=== PATIENT | male | born 1955 | race Caucasian/White ===

== ENCOUNTER 2022-09-02 12:40 | Emergency (ER) | payer MEDICARE, OTHER ==
[~2022-09-02] VITALS: Ht 165.1 cm; Wt 59.0 kg
[2022-09-02] MEDS ORDERED: THIAMINE 100mg/ml INJ (200mg/2ml VIAL) IV ONE (14:15)
[2022-09-02] MEDS ORDERED: SODIUM CHLORIDE 0.9% 1,000 ML IV ONE (14:15)
[2022-09-02 14:56] LABS: Basophils # (auto) 0 10 ^3/uL (0-0.2); Basophils % (auto) 0.2 % (0.0-2.0); Eosinophils # (auto) 0 10 ^3/uL (0-0.8); Hematocrit 38.6 % (41.0-53.0); Lymphocytes # (auto) 1.8 10 ^3/uL (0.4-5.4); Lymphocytes % (auto) 11.9 % (10.0-50.0); Mean Corpuscular Hemoglobin 30.1 pg (28.0-32.0); Mean Corpuscular Hgb Conc. 33.8 g/dL (32.0-36.0); Mean Corpuscular Volume 89.3 fL (80.0-100.0); Monocytes # (auto) 1.3 10 ^3/uL (0-1.3); Monocytes % (auto) 8.9 % (0.0-12.0); Neutrophils # (auto) 11.8 10 ^3/uL (1.6-8.6); Nucleated Red Blood Cells % 0.1 %; Red Blood Cells 4.32 10^6/uL (4.5-5.90); Red Cell Distribution Width 13.4 % (11.8-14.3)
[2022-09-02 15:13] LABS: Alanine Aminotransferase 105 U/L (16-61); Albumin 2.5 g/dL (3.4-5.0); Anion Gap 6 (5-15); Aspartate Aminotransferase 120 U/L (15-37); BUN/Creatinine Ratio 26.8; Blood Alcohol < 3.0 mg/dL (0-5); Blood Urea Nitrogen 22 mg/dL (7-18); Carbon Dioxide 25 mmol/L (21-32); Chloride 97 mmol/L (98-107); GFR African American 121 mL/min; GFR Non-African American 100 mL/min; Glucose 240 mg/dL (74-106); Potassium 4.1 mmol/L (3.5-5.1); Sodium 128 mmol/L (136-145)
[2022-09-02 15:17] LABS: Alkaline Phosphatase 168 U/L (45-117); Total Protein 6.7 g/dL (6.4-8.2)
[2022-09-02] MEDS: FOLIC ACID 1 MG, MULTIPLE VITAMIN 10 ML, MAGNESIUM SULF SDV 50% 8 MEQ, THIAMINE INJ 100... INJ SCH ×10 (16:40→22:58)
[2022-09-02 23:00] VITALS: BP 143/73
== END 2022-09-02 20:02 | disposition home or self-care (01) ==
LOC: EDBD 12:40 → EDUNIT# 12:40 → ER 12:40
DX: F10.129 Alcohol abuse with intoxication, unspecified (principal); F41.9 Anxiety disorder, unspecified; F32.9 Major depressive disorder, single episode, unspecified; Z88.8 Allergy status to other drugs, medicaments and biological substances; Z59.00 Homelessness unspecified
CPT/HCPCS: 36415; 74176; 80053; 80320; 83880; 85025; 96361; 96365; 96366; 96375; 99285; J3411; J3475; J7030

== ENCOUNTER 2022-09-03 13:44 | Emergency (ER) | payer OTHER ==
[~2022-09-03] VITALS: Ht 165.1 cm; Wt 68.1 kg
[2022-09-03 14:15] VITALS: BP 184/102
[2022-09-03] MEDS ORDERED: LACTATED RINGER'S 1,000 ML IV ONE (14:15)
== END 2022-09-03 15:33 | disposition left against medical advice (07) ==
LOC: ER 13:44 → EDBD 13:44 → ER 15:33
DX: R53.1 Weakness (principal); Z53.21 Procedure and treatment not carried out due to patient leaving prior to being seen by health care provider

== ENCOUNTER 2022-09-05 18:35 | Inpatient (IN) | payer OTHER ==
[~2022-09-05] VITALS: Ht 177.8 cm; Wt 64.1 kg
[2022-09-05] MEDS ORDERED: SODIUM CHLORIDE 0.9% 1,000 ML IV ONE (18:45)
[2022-09-05] MEDS ORDERED: CLINDAMYCIN 600MG IV 50 ML IV ONE (19:45)
[2022-09-05] MEDS ORDERED: cefTRIAXone 1GM/50ML D5W 50 ML IV ONE (19:45)
[2022-09-05 20:48] LABS: Basophils # (auto) 0.1 10 ^3/uL (0-0.2); Basophils % (auto) 0.8 % (0.0-2.0); Eosinophils # (auto) 0 10 ^3/uL (0-0.8); Hematocrit 40.2 % (41.0-53.0); Hemoglobin 13.8 g/dL (13.5-17.5); Lymphocytes # (auto) 1.3 10 ^3/uL (0.4-5.4); Lymphocytes % (auto) 9.9 % (10.0-50.0); Mean Corpuscular Hemoglobin 30.7 pg (28.0-32.0); Mean Corpuscular Hgb Conc. 34.4 g/dL (32.0-36.0); Mean Corpuscular Volume 89.1 fL (80.0-100.0); Monocytes # (auto) 1.5 10 ^3/uL (0-1.3); Monocytes % (auto) 11.7 % (0.0-12.0); Neutrophils # (auto) 9.9 10 ^3/uL (1.6-8.6); Neutrophils % (auto) 77.6 % (37.0-80.0); Nucleated Red Blood Cells % 0.1 %; Red Blood Cells 4.51 10^6/uL (4.5-5.90); Red Cell Distribution Width 13.6 % (11.8-14.3); White Blood Cell 12.8 10^3/uL (4.4-10.8)
[2022-09-05 21:06] LABS: Albumin 2.5 g/dL (3.4-5.0); Calcium 8.2 mg/dL (8.5-10.1); Potassium 3.7 mmol/L (3.5-5.1)
[2022-09-05 21:10] LABS: BUN/Creatinine Ratio 20.5; Bilirubin, Total 1.1 mg/dL (0.2-1.0); Total Protein 6.8 g/dL (6.4-8.2)
[2022-09-05] MEDS ORDERED: ONDANSETRON HCL 4 MG/2 ML VIAL IV PRN (23:00)
[2022-09-05] MEDS ORDERED: IBUPROFEN 600 MG TAB PO PRN (23:00)
[2022-09-05] MEDS ORDERED: HYDROcodone-ACET 5/325MG TAB PO PRN (23:00)
[2022-09-05] MEDS ORDERED: DOCUSATE SOD 100 MG CAP PO PRN (23:00)
[2022-09-06] MEDS ORDERED: NITROGLYCERIN 0.4 MG SL TAB SL PRN (00:45)
[2022-09-06] MEDS ORDERED: MORPHINE SULFATE INJ 2 MG/ml SYRG IV PRN (00:45)
[2022-09-06] MEDS: cefTRIAXone 1GM/50ML D5W 50 ML IV SCH (08:15)
[2022-09-06] MEDS: SODIUM CHLORIDE 0.9% 1,000 ML IV SCH ×2 (08:15→15:59)
[2022-09-06] MEDS ORDERED: LORazepam 2MG/ML-1ML VIAL IV PRN (10:00)
[2022-09-06] MEDS ORDERED: FAMOTIDINE (10MG/ML) 2ML VL IV SCH (10:00)
[2022-09-06] MEDS: LACTULOSE 20Gm/30ML SOLN PO SCH ×2 (10:05→16:09)
[2022-09-06] MEDS: THIAMINE 100mg/ml INJ (200mg/2ml VIAL) IV SCH (10:06)
[2022-09-06] MEDS: ENOXAPARIN SOD 40 MG/0.4 ML SYRINGE SC SCH (10:06)
[2022-09-06 10:47] LABS: Basophils # (auto) 0.1 10 ^3/uL (0-0.2); Basophils % (auto) 0.5 % (0.0-2.0); Eosinophils # (auto) 0 10 ^3/uL (0-0.8); Eosinophils % (auto) 0.2 % (0.0-7.0); Hemoglobin 11.9 g/dL (13.5-17.5); Lymphocytes # (auto) 1.5 10 ^3/uL (0.4-5.4); Lymphocytes % (auto) 13.1 % (10.0-50.0); Mean Corpuscular Hemoglobin 30.3 pg (28.0-32.0); Mean Corpuscular Hgb Conc. 34.9 g/dL (32.0-36.0); Mean Corpuscular Volume 86.9 fL (80.0-100.0); Monocytes # (auto) 0.8 10 ^3/uL (0-1.3); Monocytes % (auto) 7.5 % (0.0-12.0); Neutrophils # (auto) 8.8 10 ^3/uL (1.6-8.6); Neutrophils % (auto) 78.7 % (37.0-80.0); Red Blood Cells 3.91 10^6/uL (4.5-5.90); White Blood Cell 11.2 10^3/uL (4.4-10.8)
[2022-09-06 11:17] LABS: Albumin 1.9 g/dL (3.4-5.0); Calcium 7.8 mg/dL (8.5-10.1); Potassium 3.1 mmol/L (3.5-5.1)
[2022-09-06] MEDS ORDERED: POTASSIUM EFFERVESENT TAB 25 MEQ PO ONE (17:15)
[2022-09-06 17:43] LABS: Hepatitis B Surface Antibody Negative (Negative)
[2022-09-06 18:22] LABS: Hepatitis A Total Antibody Negative (Negative)
[2022-09-06 18:49] LABS: Folate (Folic Acid) 9.36 ng/mL (5.38-24)
[2022-09-06] MEDS: CLINDAMYCIN 600MG IV 50 ML IV SCH (22:00)
[2022-09-06] MEDS: GABAPENTIN 100 MG CAP PO SCH (22:19)
[2022-09-06] MEDS: MAGNESIUM OXIDE 400 MG TAB PO SCH (22:20)
[2022-09-07] MEDS: LACTULOSE 20Gm/30ML SOLN PO SCH ×4 (00:09→21:51)
[2022-09-07 04:52] VITALS: BP 139/77
[2022-09-07] MEDS: GABAPENTIN 100 MG CAP PO SCH ×3 (05:49→21:50)
[2022-09-07] MEDS: CLINDAMYCIN 600MG IV 50 ML IV SCH ×3 (05:49→22:18)
[2022-09-07 06:48] LABS: Urine Bacteria NONE SEEN /hpf (None Seen); Urine Blood Negative /uL (Negative); Urine Specific Gravity 1.013 (1.001-1.035); Urine WBC 1 /hpf (0 - 3)
[2022-09-07 08:00] VITALS: BP 142/84
[2022-09-07] MEDS: THIAMINE 100mg/ml INJ (200mg/2ml VIAL) IV SCH (09:43)
[2022-09-07] MEDS: PANTOPRAZOLE 40 MG TAB PO SCH (09:43)
[2022-09-07] MEDS: MAGNESIUM OXIDE 400 MG TAB PO SCH ×2 (09:43→21:50)
[2022-09-07] MEDS: cefTRIAXone 1GM/50ML D5W 50 ML IV SCH (09:44)
[2022-09-07] MEDS: ENOXAPARIN SOD 40 MG/0.4 ML SYRINGE SC SCH (09:50)
[2022-09-07 12:00] VITALS: BP 139/74
[2022-09-07] MEDS: FOLIC ACID 1 MG, MULTIPLE VITAMIN 10 ML, MAGNESIUM SULF SDV 50% 8 MEQ, THIAMINE INJ 100... INJ SCH ×5 (13:37)
[2022-09-07 16:00] VITALS: BP 175/109
[2022-09-07 17:33] VITALS: BP 160/100
[2022-09-07] MEDS ORDERED: POTASSIUM CHL 20 Meq TABLET PO ONE (18:30)
[2022-09-07] MEDS ORDERED: METOPROLOL TARTRATE 25 MG TAB PO ONE (18:30)
[2022-09-07 22:00] VITALS: BP 155/94
[2022-09-07] MEDS ORDERED: ATORVASTATIN 20 MG TAB PO SCH (22:00)
[2022-09-08 05:07] VITALS: BP 151/86
[2022-09-08] MEDS: CLINDAMYCIN 600MG IV 50 ML IV SCH ×2 (06:00→14:00)
[2022-09-08 06:07] LABS: BUN/Creatinine Ratio 22.8; Calcium 7.4 mg/dL (8.5-10.1); Potassium 3.9 mmol/L (3.5-5.1)
[2022-09-08] MEDS: GABAPENTIN 100 MG CAP PO SCH ×2 (06:21→14:00)
[2022-09-08 09:08] VITALS: BP 150/91
[2022-09-08] MEDS ORDERED: METOPROLOL TARTRATE 25 MG TAB PO SCH (10:00)
[2022-09-08] MEDS ORDERED: ASPirin-EC 81 mg tab PO SCH (10:00)
[2022-09-08] MEDS: LACTULOSE 20Gm/30ML SOLN PO SCH (10:00)
[2022-09-08] MEDS ORDERED: GAB100C PO (10:48)
[2022-09-08] MEDS ORDERED: MET25T PO (10:48)
[2022-09-08] MEDS ORDERED: PANT40T PO (10:48)
[2022-09-08] MEDS ORDERED: MAGN241.4 PO (10:48)
[2022-09-08] MEDS ORDERED: LACT10SO3 PO (10:48)
[2022-09-08] MEDS: PANTOPRAZOLE 40 MG TAB PO SCH (10:57)
[2022-09-08] MEDS: MAGNESIUM OXIDE 400 MG TAB PO SCH (10:58)
[2022-09-08] MEDS: ENOXAPARIN SOD 40 MG/0.4 ML SYRINGE SC SCH (10:58)
[2022-09-08] MEDS: FOLIC ACID 1 MG, MULTIPLE VITAMIN 10 ML, MAGNESIUM SULF SDV 50% 8 MEQ, THIAMINE INJ 100... INJ SCH ×5 (11:27)
[2022-09-08 13:00] VITALS: BP 148/88
[2022-09-08 13:44] VITALS: BP 150/91
[2022-09-08] MEDS ORDERED: ASPI-543 PO (14:39)
[2022-09-08] MEDS ORDERED: ATOR20TA50 PO (14:39)
[2022-09-09 13:06] LABS: Hepatitis C Antibody Positive (Negative)
== END 2022-09-08 15:00 | disposition home health service (06) | DRG 73 ==
LOC: EDBD 18:35 → EDUNIT# 18:35 → ER 18:40 → TELE 09-06 00:38 → TELE-CENTR 09-07 05:20
PROVIDERS: ADMIT Nurse Practitioner Family; ATTEND Hospitalist
DX: G62.1 Alcoholic polyneuropathy (principal); I63.9 Cerebral infarction, unspecified; L03.114 Cellulitis of left upper limb; E87.1 Hypo-osmolality and hyponatremia; E11.42 Type 2 diabetes mellitus with diabetic polyneuropathy; E11.65 Type 2 diabetes mellitus with hyperglycemia; E88.09 Other disorders of plasma-protein metabolism, not elsewhere classified; I10 Essential (primary) hypertension; K76.82 Hepatic encephalopathy; Z59.00 Homelessness unspecified; Z86.73 Personal history of transient ischemic attack (TIA), and cerebral infarction without residual deficits; F10.229 Alcohol dependence with intoxication, unspecified; Z79.82 Long term (current) use of aspirin; Z79.899 Other long term (current) drug therapy; F32.A Depression, unspecified; F41.9 Anxiety disorder, unspecified; G62.9 Polyneuropathy, unspecified; R26.9 Unspecified abnormalities of gait and mobility; R79.89 Other specified abnormal findings of blood chemistry
CPT/HCPCS: 36415; 70450; 70551; 71045; 76705; 80048; 80053; 80061; 81001; 82140; 82607; 82746; 83036; 83605; 83735; 84443; 84484; 85025; 86704; 86706; 86708; 86803; 87040; 87077; 87186; 87205; 87340; 87426; 93005; 93886; 95819; 97110; 97116; 97163; 97530; G0378; J0696; J3490